=== PATIENT | male | born 1985 | race Two or more races ===

== ENCOUNTER 2017-05-25 20:13 | Emergency (ER) | payer OTHER, MEDICAID ==
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
[2017-05-25] MEDS ORDERED: ACETAMINOPHEN 500 MG TAB PO ONE (22:08)
[2017-05-25] MEDS ORDERED: IBUPROFEN 600 MG TAB PO ONE (22:08)
[2017-05-25] MEDS ORDERED: IOPAMIDOL (ISOVUE-300) 100 ML BTL ONE (23:04)
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
[2017-05-26] MEDS ORDERED: CLINDAMYCIN 150MG PREPACK#6 BTL TAKEHOME ONE (00:03)
[2017-05-26 00:51] VITALS: BP 130/74; PULSE 70; RESP 14; TEMP 98.4; O2SAT 94
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
== END 2017-06-02 14:09 | disposition home or self-care (01) ==
PROC: 0HQ0XZZ Repair Scalp Skin, External Approach (ICD-10-PCS; principal; 2017-05-25)
DX: S01.01XA Laceration without foreign body of scalp, initial encounter (principal); S11.91XA Laceration without foreign body of unspecified part of neck, initial encounter; S16.1XXA Strain of muscle, fascia and tendon at neck level, initial encounter; W22.8XXA Striking against or struck by other objects, initial encounter
CPT/HCPCS: Q9967

== ENCOUNTER → 2017-12-23 | Outpatient (CLI) | payer MEDICAID | LOC: BMCIMAGING 10:39 | PROVIDERS: ATTEND Physician Assistant Medical | DX: M25.511 Pain in right shoulder (principal) ==